=== PATIENT | male | born 1960 | race Caucasian/White ===

== ENCOUNTER 2017-05-16 16:07 | Emergency (ER) | payer BC ==
[~2017-05-16] VITALS: Ht 167.6 cm; Wt 100.0 kg
[2017-05-16 17:33] LABS: EOSINOPHIL COUNT 0.3 K/uL (0-0.3); HEMATOCRIT 43.1 % (38.0-50.0); IMMATURE GRANULOCYTE (%) 0.2 % (0.0-0.7); INSTRUMENT ABS NEUTROPHIL CT 5.7 K/uL; LYMPHOCYTE COUNT 2.3 K/uL (1.0-2.8); MCH 29.3 PG (29.0-34.0); MCHC 33.4 G/DL (30.0-36.0); MCV 87.6 FL (86-99); MEAN PLAT.VOLUME 9.4 uM^3 (9.0-12.4); MONOCYTE (%) 9.1 % (3-12); MONOCYTE COUNT 0.8 K/uL (0-0.8); NEUTROPHIL (%) 62.3 % (45-76); NEUTROPHIL COUNT 5.7 K/uL (1.8-6.4); PLATELET COUNT 226 K/uL (156-360); RBC DIS.WIDTH-CV 14.6 % (11.8-14.6); RBC DIS.WIDTH-SD 46.9 % (39-53); RED BLOOD COUNT 4.92 M/uL (4.00-5.50); WHITE BLOOD COUNT 9.1 K/uL (4.1-10.2)
[2017-05-16 17:47] LABS: CHLORIDE 105 mEq/L (99-109); POTASSIUM 4.3 mEq/L (3.7-5.4); SODIUM 140 mEq/L (136-147)
[2017-05-16 17:48] LABS: GLUCOSE 102 mg/dL (70-99)
[2017-05-16 17:50] LABS: ANION GAP 11 MEQ/L (2-14)
[2017-05-16 17:52] LABS: GFR ESTIMATE (CALCULATED) > 59 mL/min/
[2017-05-16 17:53] LABS: UREA NITROGEN (BUN) 20 mg/dL (9-23)
[2017-05-16 17:55] LABS: URIC ACID 8.1 mg/dL (3.1-9.2)
[2017-05-16 18:29] LABS: ERTH.SED.RATE 26 MM/HR (0-20)
[2017-05-16 18:58] LABS: C-REACTIVE PROTEIN 26.7 MG/L (0-10)
[2017-05-16] MEDS ORDERED: NORCO 7.5/321 TABLET PO (20:14)
[2017-05-16] MEDS ORDERED: INDOCIN25 MG PO (20:14)
[2017-05-16 20:28] LABS: APPEARANCE CLOUDY-YELLOW; MONONUCLEAR WBC'S 7 %; POLYNUCLEAR WBC'S 93 % (0-25); RED CELL COUNT 1000 /MM^3 (0-1); SYNOVIAL FLUID EOSINOPHILS 0 % (0-25); WHITE CELL COUNT 18095 /MM^3 (0-200.0)
[2017-05-16 20:40] VITALS: BP 139/77
[2017-05-17 12:22] LABS: LYME DISEASE SEROLOGY SCREEN NEGATIVE (NEGATIVE)
== END 2017-05-16 20:41 | disposition home or self-care (01) ==
LOC: EME 16:07
PROVIDERS: Physician Assistant
PROC: 0S9D3ZZ Drainage of Left Knee Joint, Percutaneous Approach (ICD-10-PCS; principal; 2017-05-16)
DX: M23.92 Unspecified internal derangement of left knee (principal); S80.12XA Contusion of left lower leg, initial encounter; X50.1XXA Overexertion from prolonged static or awkward postures, initial encounter
CPT/HCPCS: 73564; 73590; 80048; 84550; 85025; 85651; 86140; 86618; 87205; 89051; 89060; 99281; 99284; J1170